=== PATIENT | male | born 1985 | race Caucasian/White ===

== ENCOUNTER → 2017-05-23 | Outpatient (CLI) | payer BC ==
--- NOTE | 2017-05-23 10:56 | RAD ---
Examination: Ultrasound supragluteal region History: History of swelling, tenderness in the supragluteal region Comparison: None available. Findings/impression: No obvious fluid collection identified in the supragluteal region.
== END | disposition home or self-care (01) ==
LOC: US 09:59
PROVIDERS: ATTEND Surgery
DX: L05.91 Pilonidal cyst without abscess (principal)
CPT/HCPCS: 76881